=== PATIENT | female | born 1955 | race Caucasian/White ===

== ENCOUNTER → 2016-11-12 | Outpatient (CLI) | payer OTHER ==
[2016-11-12 14:06] LABS: FREE T4 1.33 NG/DL (0.76-1.46)
== END ==
LOC: M WUC 10:44
PROVIDERS: ATTEND Family Medicine
DX: E03.9 Hypothyroidism, unspecified (principal); R73.03 Prediabetes; E55.9 Vitamin D deficiency, unspecified

== ENCOUNTER → 2017-09-02 | Outpatient (REF) | payer OTHER ==
[2017-09-02 21:50] LABS: TOTAL 25(OH) VITAMIN D 31.9 NG/ML (30.0-100.0)
[2017-09-02 22:09] LABS: ESTIMATED AVERAGE GLUCOSE 126 MG/DL (60-110)
== END ==
LOC: M SFHCPLAZ 14:11
DX: E03.9 Hypothyroidism, unspecified (principal); R73.03 Prediabetes; E55.9 Vitamin D deficiency, unspecified

== ENCOUNTER → 2018-02-24 | Outpatient (REF) | payer OTHER ==
[2018-02-24 20:28] LABS: CHOLESTEROL LEVEL 169 MG/DL (<200); CHOLESTEROL RISK RATIO 3.313 (<5); HDL CHOLESTEROL 51 MG/DL (>40); LDL CHOLESTEROL 95.4 MG/DL (<100); NON-HDL-C 118 MG/DL; TRIGLYCERIDES LEVEL 113 MG/DL (<150)
[2018-02-24 20:32] LABS: ESTIMATED AVERAGE GLUCOSE 128 MG/DL (60-110); HEMOGLOBIN A1c 6.1 %
[2018-02-25 11:13] LABS: TOTAL 25(OH) VITAMIN D 12.3 NG/ML (30.0-100.0)
== END ==
LOC: M SFHCADAM 13:35
DX: R73.03 Prediabetes (principal); E78.5 Hyperlipidemia, unspecified; E55.9 Vitamin D deficiency, unspecified

== ENCOUNTER → 2018-07-01 | Outpatient (REF) | payer OTHER | LOC: M SFHCPLAZ 13:12 | DX: J02.9 Acute pharyngitis, unspecified (principal) ==

== ENCOUNTER → 2018-10-06 | Outpatient (REF) | payer OTHER ==
[2018-10-06 18:30] LABS: THYROID STIMULATING HORMONE 2.57 uIU/ML (0.358-3.740)
[2018-10-06 19:05] LABS: HEMOGLOBIN A1c 6.5 %
== END ==
LOC: M SFHCADAM 13:14
PROVIDERS: ATTEND Family Medicine
DX: E03.9 Hypothyroidism, unspecified (principal); E55.9 Vitamin D deficiency, unspecified

== ENCOUNTER → 2019-07-14 | Outpatient (REF) | payer OTHER ==
[2019-07-14 13:45] LABS: BLOOD UREA NITROGEN 14 MG/DL (7-18); CALCIUM LEVEL 9.5 MG/DL (8.8-10.2); CARBON DIOXIDE LEVEL 27 MEQ/L (21-32); CHLORIDE LEVEL 106 MEQ/L (98-107); FREE T4 0.97 NG/DL (0.76-1.46); GLOMERULAR FILTRATION RATE > 60.0 (>45); GLUCOSE, FASTING 122 MG/DL (70-100); POTASSIUM SERUM 4.6 MEQ/L (3.5-5.1); SODIUM LEVEL 140 MEQ/L (136-145)
[2019-07-14 13:54] LABS: HEMOGLOBIN A1c 6.3 %
== END ==
LOC: M SFHCPLAZ 10:50
PROVIDERS: ATTEND Family Medicine
DX: E03.9 Hypothyroidism, unspecified (principal); E11.9 Type 2 diabetes mellitus without complications

== ENCOUNTER → 2019-10-12 | Outpatient (REF) | payer OTHER ==
[2019-10-12 17:13] LABS: BLOOD UREA NITROGEN 13 MG/DL (7-18); CALCIUM LEVEL 9.3 MG/DL (8.8-10.2); CARBON DIOXIDE LEVEL 29 MEQ/L (21-32); CHLORIDE LEVEL 106 MEQ/L (98-107); CREATININE FOR GFR 0.79 MG/DL (0.55-1.30); GLOMERULAR FILTRATION RATE > 60.0 (>45); GLUCOSE, FASTING 96 MG/DL (70-100); POTASSIUM SERUM 4.5 MEQ/L (3.5-5.1); SODIUM LEVEL 140 MEQ/L (136-145)
[2019-10-12 17:37] LABS: HEMOGLOBIN A1c 6.4 %
== END ==
LOC: M SFHCADAM 14:26
PROVIDERS: ATTEND Family Medicine
DX: E11.9 Type 2 diabetes mellitus without complications (principal)

== ENCOUNTER → 2020-06-21 | Outpatient (REF) | payer OTHER | LOC: M SFHCPLAZ 10:12 | PROVIDERS: ATTEND Family Medicine | DX: E03.9 Hypothyroidism, unspecified (principal); E78.5 Hyperlipidemia, unspecified; E11.9 Type 2 diabetes mellitus without complications ==

== ENCOUNTER → 2020-09-28 | Outpatient (REF) | payer OTHER ==
[2020-09-28 17:04] LABS: BLOOD UREA NITROGEN 15 MG/DL (7-18); CALCIUM LEVEL 9.2 MG/DL (8.8-10.2); CARBON DIOXIDE LEVEL 29 MEQ/L (21-32); CHLORIDE LEVEL 105 MEQ/L (98-107); CHOLESTEROL LEVEL 183 MG/DL (<200); CREATININE FOR GFR 0.71 MG/DL (0.55-1.30); FREE T4 1.12 NG/DL (0.76-1.46); GLOMERULAR FILTRATION RATE > 60.0 (>45); GLUCOSE, FASTING 118 MG/DL (70-100); HDL CHOLESTEROL 57 MG/DL (>40); LDL CHOLESTEROL 102 MG/DL (<100); NON-HDL-C 126 MG/DL; POTASSIUM SERUM 4.8 MEQ/L (3.5-5.1); SODIUM LEVEL 141 MEQ/L (136-145); TRIGLYCERIDES LEVEL 122 MG/DL (<150)
[2020-09-28 17:09] LABS: CREATININE, URINE 73.4 MG/DL; MALB URINE SIEMENS 5.6 MG/L; MAU/CREAT RATIO 7.6 MCG/MG (0.0-30.0)
== END ==
LOC: M SFHCPLAZ 13:45 → M SFHCADAM 13:47
PROVIDERS: ATTEND Family Medicine
DX: E03.9 Hypothyroidism, unspecified (principal); E78.5 Hyperlipidemia, unspecified; E11.9 Type 2 diabetes mellitus without complications

== ENCOUNTER → 2020-10-03 | Outpatient (REF) | payer OTHER | LOC: M SFHCPLAZ 11:33 | PROVIDERS: ATTEND Family Medicine | DX: E11.9 Type 2 diabetes mellitus without complications (principal) ==

== ENCOUNTER → 2020-10-18 | Outpatient (CLI) | payer OTHER ==
--- NOTE | 2020-10-18 16:05 | REP ---
INDICATION: ENCOUNTER FOR SCREENING FOR LUNG CA. COMPARISON: 08/22/2014 and 06/29/2014 chest x-ray TECHNIQUE: Low-dose lung screening CT protocol with thin section lung windows presented. FINDINGS: Lung zelaya are well inflated. Some minor apical pleural scarring on the right posterior apex. On the left side in the anterior mid to lung zone there is a confluent density where the lingular artery and pulmonary vein travel in near approximation. I believe this is a confluence of vascular shadows and not a mass/nodule. The remainder of the left lung shows no pleural thickening, acute infiltrate or pulmonary nodule there are scattered areas of some minor curvilinear scarring in the inferior lingular segment. No definite pulmonary nodules. No calcified pleural plaques. Heart size not grossly enlarged. IMPRESSION: 1. Lung RADS category 2 benign findings. No evidence of malignancy. Left mid lung zone density represents adjacent lingular pulmonary artery and vein traveling age adjacent to the other without pulmonary nodule, mass or infiltrate. Some minor fibrotic changes seen. Lungs well inflated. No other findings. Patients with this category of findings have less than 1% chance of malignancy at the time of the examination. For patients with a higher risk of lung malignancy, annual low-dose screening CT recommended. <Electronically signed by Yung Kimbrough > 10/18/20 [id number]
== END ==
LOC: M RAD 13:35
PROVIDERS: ATTEND Family Medicine
DX: Z12.2 Encounter for screening for malignant neoplasm of respiratory organs (principal)

== ENCOUNTER → 2021-01-08 | Outpatient (REF) | payer OTHER ==
[2021-01-08 19:03] LABS: HEMOGLOBIN A1c 6.2 %
[2021-01-08 19:07] LABS: BLOOD UREA NITROGEN 14 MG/DL (7-18); CALCIUM LEVEL 8.7 MG/DL (8.8-10.2); CARBON DIOXIDE LEVEL 30 MEQ/L (21-32); CHLORIDE LEVEL 105 MEQ/L (98-107); CREATININE FOR GFR 0.69 MG/DL (0.55-1.30); GLOMERULAR FILTRATION RATE > 60.0 (>45); GLUCOSE, FASTING 100 MG/DL (70-100); POTASSIUM SERUM 4.6 MEQ/L (3.5-5.1); SODIUM LEVEL 140 MEQ/L (136-145)
== END ==
LOC: M SFHCPLAZ 11:47 → M SFHCADAM 11:49
PROVIDERS: ATTEND Family Medicine
DX: E03.9 Hypothyroidism, unspecified (principal); E11.9 Type 2 diabetes mellitus without complications

== ENCOUNTER → 2021-05-31 | Outpatient (REF) | payer OTHER ==
[2021-05-31 15:20] LABS: BLOOD UREA NITROGEN 13 MG/DL (7-18); CALCIUM LEVEL 9.3 MG/DL (8.8-10.2); CARBON DIOXIDE LEVEL 29 MEQ/L (21-32); CHLORIDE LEVEL 104 MEQ/L (98-107); CREATININE FOR GFR 0.75 MG/DL (0.55-1.30); GLOMERULAR FILTRATION RATE > 60.0 (>45); GLUCOSE, FASTING 123 MG/DL (70-100); POTASSIUM SERUM 4.6 MEQ/L (3.5-5.1); SODIUM LEVEL 140 MEQ/L (136-145)
== END ==
LOC: M SFHCPLAZ 11:00 → M SFHCADAM 11:14
PROVIDERS: ATTEND Family Medicine
DX: E11.9 Type 2 diabetes mellitus without complications (principal); E03.9 Hypothyroidism, unspecified

== ENCOUNTER → 2021-10-01 | Outpatient (REF) | payer OTHER ==
[2021-10-01 17:36] LABS: BLOOD UREA NITROGEN 14 MG/DL (7-18); CALCIUM LEVEL 9.1 MG/DL (8.8-10.2); CARBON DIOXIDE LEVEL 26 MEQ/L (21-32); CHLORIDE LEVEL 105 MEQ/L (98-107); CHOLESTEROL LEVEL 158 MG/DL (<200); CHOLESTEROL RISK RATIO 2.771 (<5); CREATININE FOR GFR 0.84 MG/DL (0.55-1.30); GLOMERULAR FILTRATION RATE > 60.0 (>45); GLUCOSE, FASTING 121 MG/DL (70-100); HDL CHOLESTEROL 57 MG/DL (>40); LDL CHOLESTEROL 78 MG/DL (<100); NON-HDL-C 101 MG/DL; POTASSIUM SERUM 3.8 MEQ/L (3.5-5.1); SODIUM LEVEL 139 MEQ/L (136-145); TRIGLYCERIDES LEVEL 113 MG/DL (<150)
[2021-10-01 19:14] LABS: HEMOGLOBIN A1c 6.2 %
== END ==
LOC: M LABDRWAD 16:26
PROVIDERS: ATTEND Student in an Organized Health Care Education/Training Program
DX: E11.9 Type 2 diabetes mellitus without complications (principal); E78.5 Hyperlipidemia, unspecified

== ENCOUNTER → 2021-10-10 | Outpatient (REF) | payer OTHER | LOC: M SFHCPLAZ 11:45 | PROVIDERS: ATTEND Family Medicine | DX: E11.9 Type 2 diabetes mellitus without complications (principal); E78.5 Hyperlipidemia, unspecified; E03.9 Hypothyroidism, unspecified; Z53.9 Procedure and treatment not carried out, unspecified reason ==

== ENCOUNTER → 2021-11-20 | Outpatient (CLI) | payer OTHER | LOC: M CARPUL 13:30 | PROVIDERS: ATTEND Student in an Organized Health Care Education/Training Program | DX: R60.0 Localized edema (principal) ==

== ENCOUNTER → 2022-04-03 | Outpatient (CLI) | payer OTHER ==
[2022-04-03 16:27] LABS: BLOOD UREA NITROGEN 16 MG/DL (7-18); CARBON DIOXIDE LEVEL 27 MEQ/L (21-32); CHLORIDE LEVEL 106 MEQ/L (98-107); CHOLESTEROL LEVEL 165 MG/DL (<200); CHOLESTEROL RISK RATIO 3.235 (<5); CREATININE FOR GFR 0.82 MG/DL (0.55-1.30); GLOMERULAR FILTRATION RATE > 60.0 (>45); GLUCOSE, FASTING 119 MG/DL (70-100); HDL CHOLESTEROL 51 MG/DL (>40); LDL CHOLESTEROL 89 MG/DL (<100); NON-HDL-C 114 MG/DL; POTASSIUM SERUM 4.5 MEQ/L (3.5-5.1); SODIUM LEVEL 139 MEQ/L (136-145); TRIGLYCERIDES LEVEL 124 MG/DL (<150)
[2022-04-03 16:46] LABS: MALB URINE SIEMENS 7.9 MG/L; MAU/CREAT RATIO 7.9 MCG/MG (0.0-30.0)
[2022-04-03 17:00] LABS: HEMOGLOBIN A1c 6.3 %
== END ==
LOC: M ADAMS 10:26
PROVIDERS: ATTEND Family Medicine
DX: E11.9 Type 2 diabetes mellitus without complications (principal); E03.9 Hypothyroidism, unspecified; E78.5 Hyperlipidemia, unspecified

== ENCOUNTER → 2022-05-22 | Outpatient (REF) | payer OTHER ==
[2022-05-22 17:28] LABS: ALBUMIN 3.4 GM/DL (3.2-5.2); ALT/SGPT 30 U/L (12-78); BILIRUBIN,TOTAL 0.2 MG/DL (0.2-1.0); BLOOD UREA NITROGEN 16 MG/DL (7-18); CARBON DIOXIDE LEVEL 27 MEQ/L (21-32); CHLORIDE LEVEL 106 MEQ/L (98-107); CREATININE FOR GFR 0.84 MG/DL (0.55-1.30); GLOMERULAR FILTRATION RATE > 60.0 (>45); GLUCOSE, FASTING 118 MG/DL (70-100); POTASSIUM SERUM 4.5 MEQ/L (3.5-5.1); SODIUM LEVEL 139 MEQ/L (136-145); TOTAL PROTEIN 6.8 GM/DL (6.4-8.2)
== END ==
LOC: M SFHCADAM 11:50
PROVIDERS: ATTEND Student in an Organized Health Care Education/Training Program
DX: R60.0 Localized edema (principal); E03.9 Hypothyroidism, unspecified

== ENCOUNTER → 2023-05-15 | Outpatient (REF) | payer MEDICARE, MEDICAID | LOC: M SFHCPLAZ 16:03 | PROVIDERS: ATTEND Internal Medicine Hematology | DX: E11.9 Type 2 diabetes mellitus without complications (principal); E78.5 Hyperlipidemia, unspecified ==

== ENCOUNTER → 2023-09-12 | Outpatient (REF) | payer MEDICARE, MEDICAID ==
[2023-09-12 13:38] LABS: ALBUMIN 3.2 G/DL (3.2-5.2); ALKALINE PHOSPHATASE 121 U/L (46-116); ALT/SGPT 26 U/L (7.0-40); AST/SGOT 17 U/L (<34); BILIRUBIN,TOTAL 0.2 MG/DL (0.3-1.2); BLOOD UREA NITROGEN 18 MG/DL (9-23); CALCIUM LEVEL 8.9 MG/DL (8.3-10.6); CARBON DIOXIDE LEVEL 30 MMOL/L (20-31); CHLORIDE LEVEL 105 MMOL/L (98-107); CHOLESTEROL LEVEL 155 MG/DL (<200); CHOLESTEROL RISK RATIO 2.83 (<5); CREATININE FOR GFR 0.72 MG/DL (0.55-1.30); GLOMERULAR FILTRATION RATE > 60.0 (>45); GLUCOSE, FASTING 148 MG/DL (74-106); HDL CHOLESTEROL 54.7 MG/DL (>40); LDL CHOLESTEROL 68.7 MG/DL (<100); NON-HDL-C 100.3 MG/DL; POTASSIUM SERUM 4.8 MMOL/L (3.5-5.1); SODIUM LEVEL 140 MMOL/L (136-145); THYROID STIMULATING HORMONE 6.239 uIU/ML (0.55-4.78); TOTAL PROTEIN 6.4 G/DL (5.7-8.2); TRIGLYCERIDES LEVEL 158 MG/DL (<150)
[2023-09-12 13:39] LABS: TOTAL 25(OH) VITAMIN D 12.9 NG/ML (20.0-100.0)
[2023-09-12 13:41] LABS: HEMATOCRIT 39.1 % (36.0-47.0); HEMOGLOBIN 12.1 g/dl (12.0-15.5); MEAN CORPUSCULAR HEMOGLOBIN 27.5 pg (27.0-33.0); MEAN CORPUSCULAR HGB CONC 30.9 g/dl (32.0-36.5); MEAN CORPUSCULAR VOLUME 88.9 fl (80.0-96.0); PLATELET COUNT, AUTOMATED 322 10^3/uL (150-450); WHITE BLOOD COUNT 11.2 10^3/uL (4.0-10.0)
[2023-09-12 14:00] LABS: CREATININE, URINE 143.7 MG/DL; MAU/CREAT RATIO 13.2 MCG/MG (0.0-30.0)
[2023-09-12 14:17] LABS: HEMOGLOBIN A1c 6.3 % (4.0-6.0)
== END ==
LOC: M LABDRWAD 12:48
PROVIDERS: ATTEND Internal Medicine Hematology
DX: E11.9 Type 2 diabetes mellitus without complications (principal); E78.5 Hyperlipidemia, unspecified; F17.200 Nicotine dependence, unspecified, uncomplicated; E03.9 Hypothyroidism, unspecified; Z79.899 Other long term (current) drug therapy

== ENCOUNTER → 2023-11-11 | Outpatient (REF) | payer MEDICARE | LOC: M LABDRWAD 12:50 | PROVIDERS: ATTEND Student in an Organized Health Care Education/Training Program | DX: E03.9 Hypothyroidism, unspecified (principal) ==

== ENCOUNTER → 2024-10-13 | Outpatient (REF) | payer MEDICARE ==
[2024-10-13 13:32] LABS: BLOOD UREA NITROGEN 18 MG/DL (9-23); CALCIUM LEVEL 8.8 MG/DL (8.3-10.6); CARBON DIOXIDE LEVEL 29 MMOL/L (20-31); CHLORIDE LEVEL 105 MMOL/L (98-107); CHOLESTEROL LEVEL 159 MG/DL (<200); CHOLESTEROL RISK RATIO 3.06 (<5); CREATININE FOR GFR 0.72 MG/DL (0.55-1.30); GLOMERULAR FILTRATION RATE > 60.0 (>45); GLUCOSE, FASTING 163 MG/DL (74-106); HDL CHOLESTEROL 51.9 MG/DL (>40); LDL CHOLESTEROL 77.9 MG/DL (<100); NON-HDL-C 107.1 MG/DL; POTASSIUM SERUM 4.5 MMOL/L (3.5-5.1); SODIUM LEVEL 142 MMOL/L (136-145); TRIGLYCERIDES LEVEL 146 MG/DL (<150)
[2024-10-13 13:35] LABS: THYROID STIMULATING HORMONE 1.837 uIU/ML (0.55-4.78)
[2024-10-13 13:59] LABS: CREATININE, URINE 168.9 MG/DL; MAU/CREAT RATIO 5.3 MCG/MG (0.0-30.0)
[2024-10-13 14:15] LABS: HEMOGLOBIN A1c 6.3 % (4.0-6.0)
== END ==
LOC: M SFHCADAM 08:54
PROVIDERS: ATTEND Student in an Organized Health Care Education/Training Program
DX: E78.5 Hyperlipidemia, unspecified (principal); E11.9 Type 2 diabetes mellitus without complications

== ENCOUNTER → 2024-12-30 | Outpatient (REF) | payer MEDICARE | LOC: M SFHCPLAZ 14:14 | DX: Z53.21 Procedure and treatment not carried out due to patient leaving prior to being seen by health care provider (principal) ==

== ENCOUNTER → 2025-03-23 | Outpatient (REF) | payer MEDICARE ==
[2025-03-23 18:52] LABS: ALT/SGPT 16 U/L (7.0-40); AST/SGOT 16 U/L (<34); CALCIUM LEVEL 9.0 MG/DL (8.3-10.6); CARBON DIOXIDE LEVEL 30 MMOL/L (20-31); CHLORIDE LEVEL 103 MMOL/L (98-107); CREATININE FOR GFR 0.70 MG/DL (0.55-1.30); GLOMERULAR FILTRATION RATE > 90.0 (>45); POTASSIUM SERUM 4.3 MMOL/L (3.5-5.1); SODIUM LEVEL 142 MMOL/L (136-145)
[2025-03-23 19:25] LABS: ESTIMATED AVERAGE GLUCOSE 126.0 MG/DL (60-110)
== END ==
LOC: M SFHCADAM 11:39
PROVIDERS: ATTEND Student in an Organized Health Care Education/Training Program
DX: E11.9 Type 2 diabetes mellitus without complications (principal)

== ENCOUNTER → 2025-06-28 | Outpatient (REF) | payer MEDICARE ==
[2025-06-28 17:52] LABS: BASO # 0.0 10^3/uL (0.0-0.2); BASO % 0.4 % (0.0-1.0); EOS # 0.1 10^3/uL (0.0-0.5); EOS % 1.2 % (0.0-3.0); LYMPH # 2.0 10^3/uL (1.5-5.0); LYMPH % 17.8 % (24.0-44.0); MONO # 0.7 10^3/uL (0.0-0.8); MONO % 6.0 % (2.0-8.0); NEUTROPHILS # 8.3 10^3/uL (1.5-8.5); NEUTROPHILS % 74.2 % (36.0-66.0); PLATELET COUNT, AUTOMATED 382 10^3/uL (150-450)
[2025-06-28 17:55] LABS: CALCIUM LEVEL 8.7 MG/DL (8.3-10.6); CARBON DIOXIDE LEVEL 31 MMOL/L (20-31); CHLORIDE LEVEL 102 MMOL/L (98-107); CHOLESTEROL LEVEL 133 MG/DL (<200); CHOLESTEROL RISK RATIO 2.48 (<5); CREATININE FOR GFR 0.69 MG/DL (0.55-1.30); GLOMERULAR FILTRATION RATE > 90.0 (>45); LDL CHOLESTEROL 58.7 MG/DL (<100); NON-HDL-C 79.5 MG/DL; POTASSIUM SERUM 4.1 MMOL/L (3.5-5.1); SODIUM LEVEL 141 MMOL/L (136-145); TRIGLYCERIDES LEVEL 104 MG/DL (<150)
[2025-06-28 17:56] LABS: FREE T4 1.72 NG/DL (0.89-1.76)
[2025-06-28 17:57] LABS: TOTAL 25(OH) VITAMIN D 32.8 NG/ML (20.0-100.0)
== END ==
LOC: M SFHCADAM 11:34
PROVIDERS: ATTEND Student in an Organized Health Care Education/Training Program
DX: I10 Essential (primary) hypertension (principal); E03.9 Hypothyroidism, unspecified; E78.5 Hyperlipidemia, unspecified; Z79.899 Other long term (current) drug therapy

== ENCOUNTER → 2025-07-08 | Outpatient (REF) | payer MEDICARE | LOC: M SFHCPLAZ 17:36 | PROVIDERS: ATTEND Family Medicine | DX: Z53.9 Procedure and treatment not carried out, unspecified reason (principal) ==